=== PATIENT | female | born 1990 | race Caucasian/White ===

== ENCOUNTER 2018-05-23 20:58 | Emergency (ER) | payer OTHER ==
[~2018-05-23] VITALS: Ht 170.2 cm; Wt 47.6 kg
[~2018-05-23 20:58] MED LIST: BENADRYL25 MG PO; CYCLOBENZAPRINE5 MG PO; FLAGYL500 MG PO; IBUPROFEN 600600 M1 PO; NORCO 5-325 TA1 EACH PO; PHENERGAN 25 MG25 M1 PO; TRINATE TABLET1 TAB PO; ZOFRAN ODT4 MG PO
[2018-05-23 21:06] VITALS: BP 107/67
[2018-05-23] MEDS ORDERED: BCP PO (21:11)
[2018-05-23] MEDS ORDERED: NORFLEX100 MG PO (21:31)
[2018-05-23] MEDS ORDERED: MOBIC7.5 MG PO (21:31)
== END 2018-05-23 21:50 | disposition home or self-care (01) ==
LOC: ER 20:58
DX: M54.5 Low back pain (principal)

== ENCOUNTER 2018-07-03 12:45 | Emergency (ER) | payer OTHER ==
[~2018-07-03] VITALS: Ht 165.1 cm; Wt 55.8 kg
[~2018-07-03 12:45] MED LIST changes: +BCP PO; +MOBIC7.5 MG PO; +NORFLEX100 MG PO
[2018-07-03 12:59] LABS: URINE BILIRUBIN NEGATIVE (Negative); URINE BLOOD 3+ (Negative); URINE CLARITY CLEAR; URINE COLOR YELLOW; URINE GLUCOSE-RANDOM* NEGATIVE (Negative); URINE KETONES NEGATIVE (Negative); URINE PROTEIN (DIPSTICK) NEGATIVE (Negative); URINE SPECIFIC GRAVITY <= 1.005 (1.005-1.035); URINE UROBILINOGEN 0.2 E.U./dl (0.2-1.0)
[2018-07-03 13:00] LABS: URINE LEUKOCYTES-REFLEX 2+ (Negative); URINE NITRITE-REFLEX POSITIVE (Negative)
[2018-07-03 13:07] LABS: CASTS None Seen /LPF (None Seen); CRYSTALS None Seen /LPF (None Seen); SQUAMOUS 4-10 Moderate /LPF (0-3); URINE RBC 3-10 Few /HPF (0-2)
[2018-07-03 13:08] LABS: BACTERIA-REFLEX 1-9 Few /HPF (None Seen)
[2018-07-03] MEDS ORDERED: KEFLEX500 M1 PO (13:25)
[2018-07-03 15:48] VITALS: BP 112/62
== END 2018-07-03 14:10 | disposition home or self-care (01) ==
LOC: ER 12:45
PROVIDERS: Nurse Practitioner Family
DX: N39.0 Urinary tract infection, site not specified (principal)

== ENCOUNTER 2018-07-05 19:56 | Emergency (ER) | payer OTHER ==
[~2018-07-05] VITALS: Ht 170.2 cm; Wt 47.6 kg
[~2018-07-05 19:56] MED LIST changes: +KEFLEX500 M1 PO
[2018-07-05 20:13] LABS: URINE BILIRUBIN NEGATIVE (Negative); URINE BLOOD 1+ (Negative); URINE CLARITY CLEAR; URINE COLOR YELLOW; URINE GLUCOSE-RANDOM* NEGATIVE (Negative); URINE KETONES NEGATIVE (Negative); URINE NITRITE-REFLEX NEGATIVE (Negative); URINE PROTEIN (DIPSTICK) NEGATIVE (Negative); URINE UROBILINOGEN 0.2 E.U./dl (0.2-1.0)
[2018-07-05 20:14] LABS: URINE LEUKOCYTES-REFLEX 1+ (Negative)
[2018-07-05 20:28] LABS: CASTS None Seen /LPF (None Seen); CRYSTALS None Seen /LPF (None Seen); SQUAMOUS 4-10 Moderate /LPF (0-3)
[2018-07-05 20:29] LABS: URINE RBC 0-2 Rare /HPF (0-2); URINE WBC-REFLEX 0-5 Rare /HPF (0-5)
[2018-07-05] MEDS ORDERED: FLAGYL500 M1 PO (21:18)
[2018-07-05 21:36] VITALS: BP 100/76
== END 2018-07-05 21:35 | disposition home or self-care (01) ==
LOC: ER 19:56
PROVIDERS: Physician Assistant
DX: N76.0 Acute vaginitis (principal)